=== PATIENT | male | born 1970 | race Caucasian/White ===

== ENCOUNTER 2016-08-24 06:29 | Day surgery (SDC) | payer OTHER ==
[2016-08-20 12:29] VITALS: BMI 28.7
[~2016-08-24 06:29] MED LIST: LACTATED RINGERS 1,000 ML IV SCH; LIDOCAINE 1% 20 ML VIAL (10MG/ML) FOR IV START INTRADERMA PRN
[2016-08-24 06:59] VITALS: RESP 16; TEMP 97.3
[2016-08-24] MEDS ORDERED: LACTATED RINGERS 1,000 ML IV ONE (07:41)
[2016-08-24] MEDS ORDERED: PROPOFOL 10 MG/ML 20 ML VIAL IV ONE (07:44)
[2016-08-24] MEDS ORDERED: LIDOCAINE 1% INJ 10MG/ML (20 ML MDV) ONE (07:44)
--- NOTE | 2016-08-24 08:09 | P.OP ---
Date of Procedure: 08/24/16 Preoperative Diagnosis: Abdominal pain, family history colon cancer Postoperative Diagnosis: Sigmoid diverticuli, internal hemorrhoids Procedure(s) Performed: Colonoscopy Anesthesia: ASHA Surgeon: Katya Gutiérrez Estimated Blood Loss (ml): 0 IV fluids (ml): 400 Pathology: none sent Condition: stable Disposition: PACU Indications for Procedure: Abdominal pain, family history colon cancer Operative Findings: Sigmoid diverticuli, internal hemorrhoids Description of Procedure: Patient was taken to the endoscopy suite and following sedation rectal exam was performed. Colonoscope was passed through the anus into the rectum. Was passed through the sigmoid colon up to splenic flexure. Was passed through the transverse colon hepatic flexure right colon down to the area of the cecum. Circumferential observation mucosa did not reveal any lesions of concern in the cecum or right colon. No lesions of concern were identified in the transverse colon. No lesions of concern were noted in the left colon scattered diverticuli were noted in the sigmoid colon. The scope was brought down into the rectum where it was retroflexed internal hemorrhoids identified. Proximally 6 minutes were taken to withdraw the scope from the cecum to the rectum. Impression/plan: 1. Sigmoid diverticuli 2. Internal hemorrhoids Plan: 1. Conservative management 2. Repeat scope 7-10 years
--- NOTE | 2016-08-24 08:10 | P.DS ---
Providers Attending physician: Katya Gutiérrez Primary care physician: Matthew Damon Plan - Discharge Summary Discharge Medication List No Known Home Medications [No Known Home Medications] 08/20/16 [History] Follow up Appointment(s)/Referral(s): Katya Gutiérrez MD [STAFF PHYSICIAN] - As Needed Activity/Diet/Wound Care/Special Instructions: Diverticular diet Discharge Disposition: HOME SELF-CARE
[2016-08-24 08:42] VITALS: BP 121/75; PULSE 68
== END 2016-08-24 09:06 | disposition home or self-care (01) ==
LOC: ORWHC2ENDO 06:29
PROVIDERS: ATTEND Surgery
DX: K57.90 Diverticulosis of intestine, part unspecified, without perforation or abscess without bleeding (principal); K64.8 Other hemorrhoids; Z80.0 Family history of malignant neoplasm of digestive organs; F17.200 Nicotine dependence, unspecified, uncomplicated; Z88.6 Allergy status to analgesic agent; Z88.8 Allergy status to other drugs, medicaments and biological substances
CPT/HCPCS: 45378; J2001; J2704; 99153

== ENCOUNTER 2016-11-24 10:20 | Emergency (ER) | payer OTHER ==
[2016-11-24 10:32] VITALS: BP 120/60; PULSE 82; RESP 18; TEMP 97.8
[2016-11-24] MEDS ORDERED: HYDROcodone/APAP 5-325MG 1 EACH TAB PO STA (10:59)
[2016-11-24] MEDS ORDERED: DIAZEPAM 5 MG TAB PO STA (10:59)
--- NOTE | 2016-11-24 11:03 | ED ---
General Adult HPI - General Chief complaint: Back Pain/Injury Stated complaint: BACK PAST WORK INJURY Time Seen by Provider: 11/24/16 10:45 Source: patient Mode of arrival: wheelchair Limitations: no limitations - History of Present Illness Initial comments: 46-year-old male presenting for back pain. Patient states history of chronic low back pain after work accident. States he is currently in the process of evaluation with spinal surgeon in [place]. His follow-up appointment is on the 29 of December. He states that his back pain seems to be worsening over the past few days. He denies any new trauma or injury. He states he is having numbness in his left leg as well the shooting pain down the back of his left leg. He states this is a chronic and recurrent issue. He is not currently taking any pain medications. He denies any bowel or bladder incontinence. - Related Data Previous Rx's Medication Instructions Recorded Diazepam [Valium] 5 mg PO BID PRN #14 tab 11/24/16 HYDROcodone/APAP 5-325MG [Boston 1 tab PO Q6HR PRN #28 tab 11/24/16 5-325] Ibuprofen [Motrin] 800 mg PO Q8HR PRN #21 tab 11/24/16 Allergies Allergy/AdvReac Type Severity Reaction Status Date / Time cyclobenzaprine Allergy Swelling Verified 11/24/16 10:48 [From Flexeril] tramadol Allergy Swelling Verified 11/24/16 10:48 Review of Systems ROS Statement: Those systems with pertinent positive or pertinent negative responses have been documented in the HPI. ROS Other: All systems not noted in ROS Statement are negative. Past Medical History Past Medical History: No Reported History Additional Past Medical History / Comment(s): family hx. colon cancer, intermittent constipation, back injury History of Any Multi-Drug Resistant Organisms: None Reported Past Surgical History: No Surgical Hx Reported Additional Past Surgical History / Comment(s): ORAL SURGERY-HAD TEETH REMOVED March 2016 Past Anesthesia/Blood Transfusion Reactions: No Reported Reaction Past Psychological History: No Psychological Hx Reported Smoking Status: Current every day smoker Past Alcohol Use History: None Reported Additional Past Alcohol Use History / Comment(s): <ppd since late Past Drug Use History: None Reported - Past Family History Father Family Medical History: Cancer Additional Family Medical History / Comment(s): colon General Exam - General Exam Comments Initial Comments: General: Awake and Alert. No acute distress. Does not appear acutely ill. Eyes: ANTHONY, EOM intact. No nystagmus. No scleral icterus. HENT: Atraumatic, normocephalic. Mucous membranes moist. Trachea midline. Neck: The neck is supple, there is no tenderness or JVD. Cardiovascular: Regular rate and rhythm. No murmur, rub, or gallop is appreciated. Distal pulses intact. Respiratory: Lungs are clear to auscultation bilaterally. No wheezes, rales, rhonchi. No respiratory distress. Gastrointestinal: Soft, Nontender. No rebound or guarding. Non-distended. No masses or organomegaly noted. No CVA tenderness. Musculoskeletal: Left lower back tenderness. Tenderness to left lateral thigh. Strength is grossly intact. Neurological: A&Ox3. Speech is normal. Patient states subjective decreased sensation over the entire left leg but he states he does have sensation in all areas of the leg. No saddle paresthesias. Skin: Skin is warm and dry and no rashes or lesions are noted. Psychiatric: Cooperative, appropriate mood & affect, normal judgment. Limitations: no limitations Course Vital Signs 11/24/16 10:30 Temperature 97.8 F Pulse Rate 82 Respiratory 18 Rate Blood Pressure 120/60 O2 Sat by Pulse 99 Oximetry Medical Decision Making - Medical Decision Making 46-year-old male presenting for low back pain. States this is a chronic problem for him. He not currently taking any pain medication. MAPS performed which shows no recent pain prescription. Patient states he recently switched PCPs was told he should follow-up with pain management. States he has followed up with pain management and the past but he was not accepted as a patient due to his coverage being under Workmen's Comp. Patient was given Boston and Valium for pain and spasm in the EC. He declined IM or IV medications. MRI results from 07/23 reviewed. Patient reevaluated and states he is feeling improved after medications. Long discussion about management of his back pain. Discussed his MRI results. Patient states he is hoping to pursue surgical options. Patient was offered observation versus outpatient management. Patient would prefer to go home. Leg numbness has been a recurrent issue for some time. He has follow-up appointment in December with spinal specialist. He also recently began seeing a new PCP. Discussed following up closely with his PCP discuss further pain management. Discussed that I will write him for a week's worth of pain medication and muscle relaxer. Also written prescription for a cane. Patient was able to ambulate. Discussed concerning signs symptoms for immediate return to the ED. Patient are agreeable to plan of discharge home. Disposition Clinical Impression: Lumbago with sciatica, left side, Degenerative disk disease Disposition: HOME SELF-CARE Condition: Stable Instructions: Chronic Back Pain (ED) Additional Instructions: Please discuss further pain management with your primary doctor. Keep your appointment with the spinal surgeon in [place]. Prescriptions: Diazepam [Valium] 5 mg PO BID PRN #14 tab PRN Reason: back spasm HYDROcodone/APAP 5-325MG [Boston 5-325] 1 tab PO Q6HR PRN #28 tab PRN Reason: Pain Ibuprofen [Motrin] 800 mg PO Q8HR PRN #21 tab PRN Reason: Pain Referrals: Gary Harris Jr, [Primary Care Provider] - 1-2 days Time of Disposition: 11:56
== END 2016-11-24 12:12 | disposition home or self-care (01) ==
LOC: EC 10:20
DX: M51.16 Intervertebral disc disorders with radiculopathy, lumbar region (principal); F17.200 Nicotine dependence, unspecified, uncomplicated; Z88.6 Allergy status to analgesic agent; Z88.8 Allergy status to other drugs, medicaments and biological substances
CPT/HCPCS: 99284

== ENCOUNTER 2017-01-18 11:58 | Emergency (ER) | payer OTHER ==
[2017-01-18] MEDS ORDERED: methylPREDNISolone SOD SUCCI 125 MG/2 ML VIAL IV STA (12:22)
[2017-01-18] MEDS ORDERED: HYDROmorphone 1 MG/ML 1 ML SYRINGE IVP STA (12:22)
[2017-01-18] MEDS ORDERED: ORPHENADRINE 30 MG/ML 2 ML VIAL IVP STA (12:22)
--- NOTE | 2017-01-18 12:58 | ED ---
Back Pain HPI - General Chief Complaint: Back Pain/Injury Stated Complaint: back pain Time Seen by Provider: 01/18/17 12:04 Source: patient, EMS, RN notes reviewed - History of Present Illness Initial Comments: 46-year-old male presents emergency Department chief for his chronic back pain. Patient states he has chronic back pain may not take pain medication for. Patient states today he woke up and it flared up in a shooting down his left leg. Patient states that this is exactly like his typical back pain is just worse than normal. Patient states to move it hurts so bad so he thought that he called 911 and hopefully we can admit him for pain control. Patient states that he hasn't had any fever chills this. Patient denies any changes in bowel or bladder habits any loss of bowel or bladder function. Patient denies any saddle anesthesia. Patient states just needs something to help him with his discomfort so he can move around.Patient denies any recent fever, chills, shortness of breath, chest pain, abdominal pain, nausea vomiting, numbness or tingling, dysuria or hematuria, constipation or diarrhea, headaches or visual changes, or any other current symptoms. - Related Data Home Medications Medication Instructions Recorded Confirmed Citalopram Hydrobromide [CeleXA] 40 mg PO DAILY 01/18/17 01/18/17 clonazePAM [KlonoPIN] 1 mg PO DAILY PRN 01/18/17 01/18/17 clonazePAM [KlonoPIN] 2 mg PO HS 01/18/17 01/18/17 Previous Rx's Medication Instructions Recorded Ibuprofen [Motrin] 800 mg PO Q8HR PRN #21 tab 11/24/16 Hydrocodone/Acetaminophen [Rush 1 each PO Q6HR PRN #20 tab 01/18/17 5-325] predniSONE 50 mg PO DAILY #5 tab 01/18/17 Allergies Allergy/AdvReac Type Severity Reaction Status Date / Time cyclobenzaprine Allergy Swelling Verified 01/18/17 12:34 [From Flexeril] tramadol Allergy Swelling Verified 01/18/17 12:34 Review of Systems ROS Statement: Those systems with pertinent positive or pertinent negative responses have been documented in the HPI. ROS Other: All systems not noted in ROS Statement are negative. Past Medical History Past Medical History: No Reported History Additional Past Medical History / Comment(s): family hx. colon cancer, intermittent constipation, back injury History of Any Multi-Drug Resistant Organisms: None Reported Past Surgical History: No Surgical Hx Reported Additional Past Surgical History / Comment(s): ORAL SURGERY-HAD TEETH REMOVED March 2016 Past Anesthesia/Blood Transfusion Reactions: No Reported Reaction Past Psychological History: No Psychological Hx Reported Smoking Status: Former smoker Past Alcohol Use History: None Reported Additional Past Alcohol Use History / Comment(s): <ppd since late ' Past Drug Use History: None Reported - Past Family History Father Family Medical History: Cancer Additional Family Medical History / Comment(s): colon General Exam - General Exam Comments Initial Comments: General: The patient is awake and alert, in no distress, and does not appear acutely ill. Eye: Pupils are equal, round and reactive to light, extra-ocular movements are intact; there is normal conjunctiva bilaterally. No signs of icterus. Ears, nose, mouth and throat: There are moist mucous membranes. Neck: The neck is supple, there is no tenderness. Cardiovascular: There is a regular rate and rhythm. No murmur, rub or gallop is appreciated. Respiratory: Lungs are clear to auscultation, respirations are non-labored, breath sounds are equal. No wheezes, stridor, rales, or rhonchi. Gastrointestinal: Soft, non-distended, non-tender abdomen without masses or organomegaly noted. There is no rebound or guarding present. No CVA tenderness. Bowel sounds are unremarkable. Back: There is no tenderness to palpation in the midline. There is no obvious deformity. No rashes noted. She has positive straight leg raise on the left Musculoskeletal: Normal ROM, no tenderness, There is no pedal edema. There is no calf tenderness or swelling. Sensation intact. Pulses equal bilaterally 2+. Neurological: CN II-XII intact, There are no obvious motor or sensory deficits. Coordination appears grossly intact. Speech is normal. Skin: Skin is warm and dry and no rashes or lesions are noted. Psychiatric: Cooperative, appropriate mood & affect, normal judgment. Course Vital Signs 01/18/17 12:03 Temperature 98 F Pulse Rate 70 Respiratory 18 Rate Blood Pressure 153/74 O2 Sat by Pulse 96 Oximetry - Reevaluation(s) Reevaluation #1: 01/18/17 13:03 Patient was reassessed and states that he is feeling better at this time. Medical Decision Making - Medical Decision Making 46 yo male presents for for his chronic back pain. He is having sciatica like symptoms. Some we will start him on steroids for home. We discussed close follow up with Dr. arias parameters questions. We did discuss HIS concerns patient stated that he understood and is in agreement with plan. He'll be discharged home. Disposition Clinical Impression: Chronic back pain Disposition: HOME SELF-CARE Condition: Stable Instructions: Chronic Back Pain (ED) Additional Instructions: Please use medication as discussed. Please follow up with family doctor if symptoms have not improved over the next two days. Please return to the emergency room if your symptoms increase or worsen or for any other concerns. Prescriptions: Hydrocodone/Acetaminophen [Rush 5-325] 1 each PO Q6HR PRN #20 tab PRN Reason: Pain predniSONE 50 mg PO DAILY #5 tab Referrals: Gary Harris Jr, DO [Primary Care Provider] - 1-2 days Time of Disposition: 13:03
[2017-01-18 13:44] VITALS: BP 128/68; PULSE 71; RESP 18; TEMP 98
== END 2017-01-18 13:40 | disposition home or self-care (01) ==
LOC: EC 11:58
DX: G89.29 Other chronic pain (principal); M54.9 Dorsalgia, unspecified; Z87.891 Personal history of nicotine dependence; Z79.899 Other long term (current) drug therapy; Z88.8 Allergy status to other drugs, medicaments and biological substances; Z88.5 Allergy status to narcotic agent
CPT/HCPCS: 99284 ×2; 96374 ×2; 96375 ×3; J2360; J2930; J1170

== ENCOUNTER → 2017-04-06 | Outpatient (CLI) | payer OTHER ==
--- NOTE | 2017-04-06 21:28 | MR ---
EXAMINATION TYPE: MR aleksandraine/lspine wo con DATE OF EXAM: 04/06/2017 COMPARISON: MRI lumbar spine July 08, 2016. Lumbar spine x-ray June 30, 2016. HISTORY: Upper and Lower back pain x2 years (M54.9 and G89.29 per order. Neck pain causing pain or we akness in left arm and fingers since work injury 2 years ago per patient. Left-sided back pain causin g pain into left leg since injury April 12, 2015 per patient. TECHNIQUE: Multiplanar, multisequence imaging of the cervical and lumbar spine are performed without IV contrast. FINDINGS: C-SPINE: FINDINGS: Sagittal images of the cervical spine show the craniocervical junction to appear within nor mal limits. The cervical and upper thoracic spinal cord is normal in course, caliber, and signal. V ertebral alignment is straightened. The vertebral body and intravertebral disk heights are normal. N o large posterior disc herniations are seen on sagittal images. The bone marrow signal intensity is w ithin normal limits. There is mild to moderate multilevel anterior spurring in the mid to lower cervi khanh spine at C5-C6 and C6-C7 levels. Axial images at the C2-C3 level shows left-sided uncovertebral facet degenerative changes causing asy mmetric mild to moderate left-sided neural foraminal narrowing near axial image 49. Right-sided neura l foramen is patent. Spinal canal is preserved. Axial images at C3-C4 level show small broad-based right paracentral disc protrusion effacing anterio r thecal sac nearly up to ventral surface of spinal cord with some uncovertebral facet arthropathy ca using mild to moderate bilateral neural foraminal narrowing. Some blooming artifact may be exaggerati ng both findings as findings are less prominent on sagittal images. Axial images at C4-C5 level show focal broad-based right paracentral disc protrusion effacing anterio r thecal sac on axial image 28 causing slight flattening of ventral surface of spinal cord. There is asymmetric mild to moderate left-sided neural foraminal narrowing due to marginal spurring. Right-si ded neural foramen is patent near axial image 30. Axial images at C5-C6 level show more prominent focal broad-based right paracentral disc protrusion e ffacing anterolateral thecal sac on axial image 21 causing indenting of ventral surface of spinal cor d. Bilateral neural foramina are mildly narrowed. Axial images at C6-C7 level show focal broad-based effacing anterolateral thecal sac, there is margin al spurring bilaterally causing mild to moderate left greater than right neural foraminal narrowing a t this level. Axial images at C7-T1 level are felt within normal limits. IMPRESSION: Straightening of cervical spine with multilevel degenerative changes identified as detail ed above. L-SPINE: Survey images shows asymmetric prominence or mild enlargement of spleen measuring 13.9 cm on long axi s on image 1. Consider further clinical workup. Is redemonstration bilateral pars defects at L4 level. There is stable grade 1 anterolisthesis of L4 on L5 measuring approximately 4 to 5 mm from posterior vertebral body margin. Vertebral body heights appear stable and satisfactory. There is persistent disc desiccation with mild to moderate disc space narrowing L4-L5 level. Posterior disc herniation at this level on sagittal images is redemonstrated. There is persistent heterogeneous increased T1 and T2 signal at the anterior L4-L5 endplate consiste nt with Modic type II degenerative change. Moderate spurring at this level is redemonstrated. The con us medullaris remains normal in position and signal ending at superior L1 level. Axial images show the T12-L1 and L1-L2 levels to remain within normal limits. Axial images at the L2-L3 level redemonstrate mild broad disc bulge but spinal canal is preserved. Th ere is mild to minimal bilateral anterior inferior neural foraminal narrowing at this level redemonst rated. Axial images at L3-L4 level redemonstrate mild broad disc bulge mild facet degenerative changes bilat erally but spinal canal is preserved. There is redemonstration of stable mild bilateral anterior infe rior neural foraminal narrowing at this level. Axial images at the L4-L5 level show spondylolisthesis and broad-based posterior disc protrusion. The re is some increased prominence of epidural fat at this level. There is persistent mild facet degener ative changes bilaterally. There is persistent moderate to severe bilateral neural foraminal narrowin g most prominent inferiorly with encroachment on both L4 nerves redemonstrated on the right on sagitt al image 12 and on the left on sagittal image 4. Axial images at the L5-S1 level shows redemonstrate mild facet degenerative changes bilaterally. Ther e is prominent epidural fat redemonstrated. There is mild right greater than left neural foraminal na rrowing due to some marginal spurring. Paraspinal muscle bulk is maintained. No suspicious retroperitoneal findings are seen. Incidental not e is made of retroaortic left renal vein which is normal variant. IMPRESSION: Multilevel degenerative changes in the mid to lower lumbar spine as detailed above, most prominent findings L4-L5 level with there are bilateral pars defects and spondylolisthesis causing mo derate to severe bilateral neural foraminal narrowing with encroachment on both L4 nerves felt presen t. Further details are noted as discussed above. No significant progression from prior MRI is seen.
== END | disposition home or self-care (01) ==
LOC: RADMRIMAIN 18:26
PROVIDERS: ATTEND Neurological Surgery
DX: M99.73 Connective tissue and disc stenosis of intervertebral foramina of lumbar region (principal); M43.16 Spondylolisthesis, lumbar region; M47.812 Spondylosis without myelopathy or radiculopathy, cervical region; M47.817 Spondylosis without myelopathy or radiculopathy, lumbosacral region
CPT/HCPCS: 72141; 72148

== ENCOUNTER 2017-05-11 12:43 | Emergency (ER) | payer OTHER ==
[2017-05-11 12:48] VITALS: RESP 18; TEMP 97
[2017-05-11] MEDS ORDERED: KETOROLAC 30 MG/ML 1 ML VIAL IVP STA (13:10)
[2017-05-11] MEDS ORDERED: HYDROmorphone 1 MG/ML 1 ML SYRINGE IVP STA ×2 (13:10→14:59)
[2017-05-11 13:38] LABS: Basophils # (A) 0.1 k/uL (0-0.2); Basophils % (A) 1 %; CH 31.1; CHCM 34.4; Eosinophils # (A) 0.4 k/uL (0-0.7); Eosinophils % (A) 4 %; HGB 14.7 gm/dL (13.0-17.5); Luc # (Auto) 0.16; Luc % (Auto) 2; Lymphocytes # (A) 2.4 k/uL (1.0-4.8); Lymphocytes % (A) 24 %; MCH 31.7 pg (25.0-35.0); MCHC 34.9 g/dL (31.0-37.0); MCV 90.7 fL (80.0-100.0); Mean Platelet Volume 7.2; Monocytes # (A) 0.5 k/uL (0-1.0); Monocytes % (A) 5 %; Neutrophils # (A) 6.5 k/uL (1.3-7.7); Neutrophils % (A) 65 %; RBC 4.63 m/uL (4.30-5.90); RDW 13.4 % (11.5-15.5); WBC (Perox) 9.79
--- NOTE | 2017-05-11 13:39 | ED ---
Back Pain HPI - General Chief Complaint: Back Pain/Injury Stated Complaint: BACK PAIN Time Seen by Provider: 05/11/17 12:52 Source: patient, EMS Limitations: no limitations - History of Present Illness Initial Comments: Patient is a 46-year-old male who presents with a chief complaint of back pain. Patient has a history of back pain stemming from a work-related injury. Patient states periodically he has exacerbations of his back pain however today he is unable to walk at all. Patient states that he urinated on himself today, and that he is having some numbness and tingling in his peroneal region. Patient denies any new injury, and is unable to identify an inciting incident. He states that moving or trying to walk or exacerbating factors. Alleviating factors are none. Timing is constant. On initial evaluation, patient is in no acute distress. - Related Data Home Medications Medication Instructions Recorded Confirmed Citalopram Hydrobromide [CeleXA] 40 mg PO DAILY 01/18/17 05/11/17 clonazePAM [KlonoPIN] 1 mg PO TID PRN 01/18/17 05/11/17 Hydrocodone/Acetaminophen [[place] 1 tab PO Q6HR PRN 05/11/17 05/11/17 5-325] Methocarbamol [Robaxin-750] 750 mg PO Q8H PRN 05/11/17 05/11/17 Allergies Allergy/AdvReac Type Severity Reaction Status Date / Time cyclobenzaprine Allergy Swelling Verified 05/11/17 13:15 [From Flexeril] tramadol Allergy Swelling Verified 05/11/17 13:15 Review of Systems ROS Statement: Those systems with pertinent positive or pertinent negative responses have been documented in the HPI. ROS Other: All systems not noted in ROS Statement are negative. Constitutional: Denies: fever Eyes: Denies: vision change ENT: Denies: throat pain Respiratory: Denies: dyspnea Cardiovascular: Denies: chest pain Endocrine: Denies: fatigue Gastrointestinal: Denies: abdominal pain, nausea, vomiting Genitourinary: Reports: as per HPI Musculoskeletal: Reports: back pain Skin: Denies: rash, lesions Neurological: Reports: numbness, paresthesias, abnormal gait Psychiatric: Reports: depression Past Medical History Past Medical History: No Reported History Additional Past Medical History / Comment(s): family hx. colon cancer, intermittent constipation, back injury, chronic lower back pain. History of Any Multi-Drug Resistant Organisms: None Reported Past Surgical History: No Surgical Hx Reported Additional Past Surgical History / Comment(s): ORAL SURGERY-HAD TEETH REMOVED March 2016 Past Anesthesia/Blood Transfusion Reactions: No Reported Reaction Past Psychological History: Anxiety, Bipolar, Depression Smoking Status: Former smoker Past Alcohol Use History: None Reported Past Drug Use History: None Reported - Past Family History Father Family Medical History: Cancer Additional Family Medical History / Comment(s): colon General Exam Limitations: no limitations General appearance: alert, in no apparent distress Head exam: Present: atraumatic, normocephalic Eye exam: Present: normal appearance ENT exam: Present: normal exam Neck exam: Present: normal inspection Respiratory exam: Present: normal lung sounds bilaterally Cardiovascular Exam: Present: regular rate, normal rhythm, normal heart sounds GI/Abdominal exam: Present: soft. Absent: distended, tenderness, guarding Rectal exam: Present: normal inspection, decreased rectal tone Extremities exam: Present: normal inspection Back exam: Present: paraspinal tenderness, vertebral tenderness, other ( Examination of the back is limited secondary to patient's immobility) Neurological exam: Present: alert, oriented X3, CN II-XII intact, abnormal gait , motor sensory deficit (Neurologic examination of this patient's lower extremities reveals that he is hyporeflexic with bilateral patellar reflexes. Dorsiflexion and plantar flexion of the bilateral feet are diminished however it is unclear if this is secondary to effort for actual deficit. Rectal exam reveals decreased rectal tone.). Absent: reflexes normal Psychiatric exam: Present: depressed Skin exam: Present: warm, dry, intact Course Vital Signs 05/11/17 05/11/17 05/11/17 12:44 13:39 14:29 Temperature 97.0 F L Pulse Rate 54 L 69 65 Respiratory 18 18 18 Rate Blood Pressure 157/83 143/94 135/79 O2 Sat by Pulse 96 97 97 Oximetry Medical Decision Making - Medical Decision Making Patient presents with chief complaint of back pain. This appears to be an acute exacerbation of a chronic issue. Patient sees Dr. Vega at the [facility] for his back issues. He states that he is supposed to have surgery in July. Patient presents today with acute symptoms including going on for 3 days but worse today. Patient reports that he is unable to walk at home. Patient reports losing control of his bladder. Examination is concerning for cauda equina syndrome as patient is having perianal anesthesia, decreased rectal tone, and motor and sensory deficits of the lower extremities. Basic lab work was sent, I will speak with the patient's neurosurgeon to discuss this case and likely transfer to [facility] for continuation of care. 2:22 PM I spoke with Dr. Jansen at [facility] was unwilling to accept transfer of this patient secondary to their facility being at capacity. The transfer team at [facility] was called, I spoke with Dr. Childs regarding this patient's case. She accepts transfer of this patient. I review the care plan with the patient, he is agreeable. EMTALA will be signed, patient is stable for transfer. - Lab Data Result diagrams: 05/11/17 13:25 05/11/17 13:25 Lab Results 05/11/17 05/11/17 05/11/17 Range/Units 13:25 13:25 13:52 WBC 10.0 (3.8-10.6) k/uL RBC 4.63 (4.30-5.90) m/uL Hgb 14.7 (13.0-17.5) gm/dL Hct 42.0 (39.0-53.0) % MCV 90.7 (80.0-100.0) fL MCH 31.7 (25.0-35.0) pg MCHC 34.9 (31.0-37.0) g/dL RDW 13.4 (11.5-15.5) % Plt Count 204 (150-450) k/uL Neutrophils % 65 % Lymphocytes % 24 % Monocytes % 5 % Eosinophils % 4 % Basophils % 1 % Neutrophils # 6.5 (1.3-7.7) k/uL Lymphocytes # 2.4 (1.0-4.8) k/uL Monocytes # 0.5 (0-1.0) k/uL Eosinophils # 0.4 (0-0.7) k/uL Basophils # 0.1 (0-0.2) k/uL Sodium 140 (137-145) mmol/L Potassium 3.9 (3.5-5.1) mmol/L Chloride 109 H (98-107) mmol/L Carbon Dioxide 22 (22-30) mmol/L Anion Gap 9 mmol/L BUN 13 (9-20) mg/dL Creatinine 0.84 (0.66-1.25) mg/dL Est GFR (MDRD) Af Amer >60 (>60 ml/min/1.73 sqM) Est GFR (MDRD) Non-Af >60 (>60 ml/min/1.73 sqM) Glucose 89 (74-99) mg/dL Calcium 9.3 (8.4-10.2) mg/dL Urine Color Yellow Urine Appearance Clear (Clear) Urine pH 6.5 (5.0-8.0) Ur Specific [place] 1.015 (1.001-1.035) Urine Protein Negative (Negative) Urine Glucose (UA) Negative (Negative) Urine Ketones Negative (Negative) Urine Blood Negative (Negative) Urine Nitrite Negative (Negative) Urine Bilirubin Negative (Negative) Urine Urobilinogen <2.0 (<2.0) mg/dL Ur Leukocyte Esterase Negative (Negative) Disposition Clinical Impression: Cauda equina syndrome, Back pain Disposition: OTHER INSTITUTION NOT DEFINED Condition: Fair Referrals: Gary Harris Jr, [Primary Care Provider] - 1-2 days - Out of Hospital Transfer - Req. Specs Out of Hospital Transfer - Requested Specifics: Other Emergency Center
[2017-05-11 13:58] LABS: Anion Gap 9 mmol/L; Blood Urea Nitrogen 13 mg/dL (9-20); Calcium 9.3 mg/dL (8.4-10.2); Carbon Dioxide 22 mmol/L (22-30); Chloride 109 mmol/L (98-107); Glucose 89 mg/dL (74-99); Non-African American GFR(MDRD) >60 (>60 ml/min/1.73 sqM); Potassium 3.9 mmol/L (3.5-5.1); Sodium 140 mmol/L (137-145)
[2017-05-11 14:11] LABS: Appearance,Urine Clear (Clear); Bilirubin,Urine Negative (Negative); Glucose,Urine (UA) Negative (Negative); Ketones,Urine Negative (Negative); Leukocyte Esterase,Urine Negative (Negative); Nitrite,Urine Negative (Negative); PH, Urine 6.5 (5.0-8.0); Protein,Urine Negative (Negative); Specific Gravity,Urine 1.015 (1.001-1.035); UA Billing (MACRO vs. MICRO) CHEM; Urobilinogen,Urine <2.0 mg/dL (<2.0)
[2017-05-11 14:31] VITALS: BP 135/79; PULSE 65
== END 2017-05-11 15:30 | disposition short-term general hospital (02) ==
LOC: EC 12:43
DX: G83.4 Cauda equina syndrome (principal); F32.9 Major depressive disorder, single episode, unspecified; Z87.891 Personal history of nicotine dependence; Z79.899 Other long term (current) drug therapy; Z88.5 Allergy status to narcotic agent; Z88.8 Allergy status to other drugs, medicaments and biological substances
CPT/HCPCS: 99283 ×2; 96374 ×2; 96375 ×2; 96376 ×2; 36415; 80048; 85025; 81003; J1885; J1170

== ENCOUNTER → 2017-05-20 | Outpatient (CLI) | payer OTHER ==
--- NOTE | 2017-05-20 23:18 | MR ---
EXAMINATION TYPE: MR thoracic spine wo con DATE OF EXAM: 05/20/2017 COMPARISON: NONE HISTORY: Spondylolistheis, Pars defect of lumbar Standard multiplanar, multisequence MRI departmental protocol Multiplanar, multisequence images of the thoracic spine were acquired. FINDINGS: The thoracic vertebra have normal alignment. Disc spaces are fairly normal. There is no com pression fracture. On the T1 images there are scattered high signal foci in the vertebral bodies cons istent with hemangiomata. Thoracic spinal cord has normal signal pattern. There is no edema. There is no evidence of thoracic there is a large hypertrophic spur on the facet joint at T10-11 on the left side with some lateral recess stenosis. There is no sign of thoracic paraspinal mass. There is minor spurring of the endplates. IMPRESSION: Mild spondylotic changes. Facet arthropathy and mild lateral recess stenosis at T10-11 on the left si de. No spinal stenosis. No fracture.
== END | disposition home or self-care (01) ==
LOC: RADMRIMAIN 18:31
PROVIDERS: ATTEND Neurological Surgery
DX: M47.814 Spondylosis without myelopathy or radiculopathy, thoracic region (principal); M46.94 Unspecified inflammatory spondylopathy, thoracic region
CPT/HCPCS: 72146

== ENCOUNTER → 2017-08-04 | Outpatient (CLI) | payer OTHER ==
--- NOTE | 2017-08-04 13:13 | MR ---
EXAMINATION TYPE: MR lumbar spine wo con DATE OF EXAM: 08/04/2017 COMPARISON: Prior MR lumbar spine 07/08/2016 HISTORY: Dorsalgia, unspecified, Chronic pain TECHNIQUE: Multiplanar, multisequence images of the lumbar spine were acquired. L1-L2: Normal disc appearance without desiccation. No herniation, protrusion or disc bulging. No ca nal stenosis is present. Foramina are patent bilaterally. L2-L3: Broad-based posterior disc bulge causes slight anterior mass effect on the thecal sac. No sign ificant foraminal encroachment or central stenosis. L3-L4: Broad-based posterior disc bulge causes minimal anterior mass effect on the thecal sac. There is facet arthropathy with hypertrophy ligamentum flavum. No significant central stenosis or foraminal encroachment. L4-L5: Similar findings are present. There is bilateral foraminal encroachment due to the anterolisth esis grade 1, there is bilateral spondylolysis at L4. Broad-based posterior disc bulge causes mild an terior mass effect on the thecal sac. There is facet arthropathy change present. Cystic focus extends from the medial aspect facet joint on the right causes some mass effect on the right lateral aspect of the thecal sac as on prior exam and measures approximately 6 to 7 mm in diameter. No significant s jo stenosis. There is associated loss of disc height and signal. Endplate discogenic marrow signal changes are present with associated spondylosis. L5-S1: Facet arthropathy is mild. Broad-based posterior disc bulge does not cause significant central canal stenosis. No significant foraminal encroachment. Lumbar segments are intact. No paraspinal masses are identified. Conus medullaris has a normal appe arance. Circumaortic renal vein collar is suspected on the left. IMPRESSION: Findings are similar to prior. 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 Fac et arthropathy with synovial cyst causing right lateral mass effect on the thecal sac.
== END | disposition home or self-care (01) ==
LOC: RADMRIMAIN 11:11
PROVIDERS: ATTEND Neurological Surgery
DX: M43.06 Spondylolysis, lumbar region (principal); M46.97 Unspecified inflammatory spondylopathy, lumbosacral region; M71.38 Other bursal cyst, other site
CPT/HCPCS: 72148

== ENCOUNTER 2017-09-16 23:16 | Emergency (ER) | payer OTHER ==
[2017-09-16 23:32] VITALS: RESP 18
[2017-09-16] MEDS ORDERED: HYDROmorphone 2 MG/ML 1 ML SYRINGE IVP STA (23:34)
[2017-09-16] MEDS ORDERED: SODIUM CHLORIDE 0.9% 1,000 ML IV ONE (23:34)
[2017-09-16] MEDS ORDERED: ONDANSETRON 4 MG/2 ML VIAL IVP STA (23:34)
[2017-09-16] MEDS ORDERED: SODIUM CHLORIDE 0.9% 500 ML IV ONE (23:34)
[2017-09-16 23:57] LABS: Basophils # (A) 0.1 k/uL (0-0.2); Basophils % (A) 1 %; Eosinophils # (A) 0.3 k/uL (0-0.7); Eosinophils % (A) 2 %; HGB 13.8 gm/dL (13.0-17.5); Lymphocytes # (A) 3.8 k/uL (1.0-4.8); Lymphocytes % (A) 26 %; MCHC 32.8 g/dL (31.0-37.0); MCV 91.4 fL (80.0-100.0); Mean Platelet Volume 7.1; Monocytes # (A) 0.8 k/uL (0-1.0); Monocytes % (A) 5 %; Neutrophils # (A) 9.8 k/uL (1.3-7.7); Neutrophils % (A) 66 %; Platelet Count 239 k/uL (150-450); RBC 4.59 m/uL (4.30-5.90); RDW 12.9 % (11.5-15.5)
[2017-09-17 00:09] LABS: ALT 44 U/L (21-72); AST 26 U/L (17-59); Albumin 4.1 g/dL (3.5-5.0); Alkaline Phosphatase 68 U/L (38-126); Anion Gap 12 mmol/L; Blood Urea Nitrogen 16 mg/dL (9-20); Calcium 9.3 mg/dL (8.4-10.2); Carbon Dioxide 20 mmol/L (22-30); Chloride 109 mmol/L (98-107); Glucose 84 mg/dL (74-99); Potassium 3.9 mmol/L (3.5-5.1); Sodium 141 mmol/L (137-145); Total Bilirubin 0.3 mg/dL (0.2-1.3); Total Protein 6.8 g/dL (6.3-8.2)
--- NOTE | 2017-09-17 00:11 | ED ---
Fall HPI - General Chief Complaint: Fall Stated Complaint: Fall Time Seen by Provider: 09/16/17 23:23 Source: EMS Mode of arrival: EMS - History of Present Illness Initial Comments: 47 years old gentleman with a previous history of injured his lower back, unfortunately fell today came down 7 steps no complaining about the left hip pain left femur pain and the lower back pain he denies medication had denies any loss of consciousness no chest pain no abdominal pain no frequency urgency dysuria denies any neck pain. No headaches no neck stiffness no neurological deficits in the upper or lower extremity no symptoms of TIA or CVA - Related Data Home Medications Medication Instructions Recorded Confirmed Citalopram Hydrobromide [CeleXA] 40 mg PO DAILY 01/18/17 06/11/17 clonazePAM [KlonoPIN] 1 mg PO TID PRN 01/18/17 06/11/17 Methocarbamol [Robaxin] 500 mg PO BID 06/11/17 06/11/17 oxyCODONE-APAP 10-325MG [Percocet 1 tab PO TID PRN 06/11/17 06/11/17 10-325 mg] Previous Rx's Medication Instructions Recorded Baclofen 10 mg PO TID #12 tab 06/11/17 Diclofenac Sodium [Voltaren] 50 mg PO BID #30 tablet. 09/17/17 HYDROmorphone [Dilaudid] 1 mg PO Q8H PRN #15 tab 09/17/17 Allergies Allergy/AdvReac Type Severity Reaction Status Date / Time cyclobenzaprine Allergy Swelling Verified 06/11/17 18:56 [From Flexeril] tramadol Allergy Swelling Verified 06/11/17 18:56 Review of Systems ROS Statement: Those systems with pertinent positive or pertinent negative responses have been documented in the HPI. ROS Other: All systems not noted in ROS Statement are negative. Past Medical History Past Medical History: No Reported History Additional Past Medical History / Comment(s): family hx. colon cancer, intermittent constipation, back injury, chronic lower back pain. History of Any Multi-Drug Resistant Organisms: None Reported Past Surgical History: No Surgical Hx Reported Additional Past Surgical History / Comment(s): ORAL SURGERY-HAD TEETH REMOVED March 2016 Past Anesthesia/Blood Transfusion Reactions: No Reported Reaction Past Psychological History: Anxiety, Bipolar, Depression Smoking Status: Former smoker Past Alcohol Use History: None Reported Past Drug Use History: Marijuana - Past Family History Father Family Medical History: Cancer Additional Family Medical History / Comment(s): colon General Exam - General Exam Comments Initial Comments: General: The patient is awake and alert, in moderate distress does pain Skin: Skin is warm and dry and no rashes or lesions are noted. Eye: Pupils are equal, round and reactive to light, extra-ocular movements are intact; there is normal conjunctiva bilaterally. Ears, nose, mouth and throat: There are moist mucous membranes and no oral lesions. Neck: The neck is tender at C5 and C6 Cardiovascular: There is a regular rate and rhythm. No murmur, rub or gallop is appreciated. Respiratory: To auscultation bilateral, no wheezing no rhonchi no distress respiratory navarro noticed Gastrointestinal: Soft, non-distended, non-tender abdomen without masses or organomegaly noted. There is no rebound or guarding present. Bowel sounds are unremarkable. Back: Tender at the L4-L5 and S1, is also tender over the left greater trochanter, there is no neurovascular compromise of the distal left lower extremity Musculoskeletal: Normal ROM, no tenderness, There is no pedal edema. There is no calf tenderness or swelling. No cords were appreciated. Neurological: CN II-XII intact, Cranial nerves III through XII are intact. There are no obvious motor or sensory deficits. Coordination appears grossly intact. Speech is normal. Psychiatric: Cooperative, appropriate mood & affect, normal judgment Limitations: no limitations, physical limitation Course Vital Signs 09/16/17 23:27 Temperature 97.3 F L Pulse Rate 94 Respiratory 18 Rate Blood Pressure 134/90 O2 Sat by Pulse 99 Oximetry EKG is normal sinus rhythm ventricular rate is 89 AK interval is 160 QRS duration is 106 QT/QTc is 340/413 and aVF this EKG does not reveal any ST elevation or ST depression Patient is reassessed at 12:50 AM, he still complaining about the pain at that point to we discussed the findings of his imaging studies is sinus x-rays unremarkable his hip x-ray is unremarkable CT of the lumbar spine ruled out any fracture there are some old arthritic changes. Mom he stated he said pain I offered him observation admission for pain management he preferred to go home. He will be prescribed Dilaudid 1 mg by mouth 3 times a day when necessary #15 and then he is advised to see Dr. Dr. Harris. Medical Decision Making - Lab Data Result diagrams: 09/16/17 23:21 09/16/17 23:21 Lab Results 09/16/17 09/16/17 Range/Units 23:21 23:21 WBC 15.0 H (3.8-10.6) k/uL RBC 4.59 (4.30-5.90) m/uL Hgb 13.8 (13.0-17.5) gm/dL Hct 42.0 (39.0-53.0) % MCV 91.4 (80.0-100.0) fL MCH 30.0 (25.0-35.0) pg MCHC 32.8 (31.0-37.0) g/dL RDW 12.9 (11.5-15.5) % Plt Count 239 (150-450) k/uL Neutrophils % 66 % Lymphocytes % 26 % Monocytes % 5 % Eosinophils % 2 % Basophils % 1 % Neutrophils # 9.8 H (1.3-7.7) k/uL Lymphocytes # 3.8 (1.0-4.8) k/uL Monocytes # 0.8 (0-1.0) k/uL Eosinophils # 0.3 (0-0.7) k/uL Basophils # 0.1 (0-0.2) k/uL Sodium 141 (137-145) mmol/L Potassium 3.9 (3.5-5.1) mmol/L Chloride 109 H (98-107) mmol/L Carbon Dioxide 20 L (22-30) mmol/L Anion Gap 12 mmol/L BUN 16 (9-20) mg/dL Creatinine 0.90 (0.66-1.25) mg/dL Est GFR (MDRD) Af Amer >60 (>60 ml/min/1.73 sqM) Est GFR (MDRD) Non-Af >60 (>60 ml/min/1.73 sqM) Glucose 84 (74-99) mg/dL Calcium 9.3 (8.4-10.2) mg/dL Total Bilirubin 0.3 (0.2-1.3) mg/dL AST 26 (17-59) U/L ALT 44 (21-72) U/L Alkaline Phosphatase 68 (38-126) U/L Total Protein 6.8 (6.3-8.2) g/dL Albumin 4.1 (3.5-5.0) g/dL Disposition Clinical Impression: Fall, Back pain, Left hip pain Disposition: HOME SELF-CARE Condition: Good Instructions: Fall Prevention for Older Adults (ED) Prescriptions: Diclofenac Sodium [Voltaren] 50 mg PO BID #30 tablet. HYDROmorphone [Dilaudid] 1 mg PO Q8H PRN #15 tab PRN Reason: Pain Referrals: Gary Harris Jr, [Primary Care Provider] - 1-2 days
--- NOTE | 2017-09-17 00:12 | CT ---
EXAMINATION TYPE: CT lumbar spine wo con DATE OF EXAM: 09/17/2017 12:02 AM COMPARISON: NONE HISTORY: Prior MR and XR on synapse, fall down 7 stairs history of chronic low back pain CT DLP: 1286.60 mGycm Automated exposure control for dose reduction was used. Lumbar vertebra have overall fairly normal alignment. There is spondylolysis of L4 with a minimal 4 m m L4-5 spondylolisthesis. I see no acute fracture. There is no compression fracture. There is spurrin g of the endplates anteriorly at L4-5. There is no significant disc space narrowing. There is no lumb ar paraspinal mass. There is a mild relative spinal stenosis at L4-5. IMPRESSION: No acute bony abnormality seen. Minimal L4-5 spondylolisthesis that is unchanged compared to MR scan of 08/04/2017. There is a mild relative spinal stenosis at L4-5.
--- NOTE | 2017-09-17 00:22 | XR ---
EXAMINATION TYPE: XR Hip Complete LT DATE OF EXAM: 09/17/2017 COMPARISON: NONE HISTORY: Fell down the stairs with hip pain TECHNIQUE: 2 views FINDINGS: I see no fracture nor dislocation. Hip joint space is fairly normal. Visualized sacroiliac joint appears normal. IMPRESSION: Negative left hip exam.
[2017-09-17] MEDS ORDERED: HYDROmorphone 2 MG/ML 1 ML SYRINGE IVP STA (00:37)
[2017-09-17] MEDS ORDERED: KETOROLAC 30 MG/ML 1 ML VIAL IVP STA (00:38)
--- NOTE | 2017-09-17 00:39 | XR ---
EXAMINATION TYPE: XR femur LT DATE OF EXAM: 09/17/2017 COMPARISON: NONE HISTORY: Fell down the stairs. Pain. TECHNIQUE: 4 views FINDINGS: I see no fracture nor dislocation. Knee joint and hip joint appear intact. IMPRESSION: Negative left femur exam.
--- NOTE | 2017-09-17 00:40 | XR ---
EXAMINATION TYPE: XR cervical spine comp DATE OF EXAM: 09/17/2017 COMPARISON: NONE HISTORY: Fell down the stairs. Neck pain. TECHNIQUE: 6 views FINDINGS: The cervical vertebra have normal alignment. Exam is limited by the shoulders. I see no sig nificant disc space narrowing. There is some anterior spurring at C4-5. There is anterior spurring at C5-6. There are no cervical ribs. Atlantoaxial facet joint is normal. IMPRESSION: Exam limited by the shoulders to some extent. No fracture seen. Spondylotic changes in th e lower cervical spine.
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
[2017-09-17] MEDS ORDERED: HYDROmorphone 2 MG/ML 1 ML SYRINGE IM STA (00:49)
[2017-09-17 02:15] VITALS: BP 137/93; PULSE 84; TEMP 98.7
== END 2017-09-17 01:22 | disposition home or self-care (01) ==
LOC: EC 23:16
DX: M54.5 Low back pain (principal); M25.552 Pain in left hip; F32.9 Major depressive disorder, single episode, unspecified; Z85.038 Personal history of other malignant neoplasm of large intestine; Z87.891 Personal history of nicotine dependence; Z79.899 Other long term (current) drug therapy; Z88.8 Allergy status to other drugs, medicaments and biological substances; Z88.6 Allergy status to analgesic agent; W10.9XXA Fall (on) (from) unspecified stairs and steps, initial encounter
CPT/HCPCS: 36415; 93005; 80053; 85025; 72050; 73502; 73552; 71046; 72131; 99285; 96374; 96375; 96361 ×2; 96372; J1170 ×2; J1885

== ENCOUNTER 2017-09-28 00:25 | Emergency (ER) | payer OTHER ==
[2017-09-28] MEDS ORDERED: MORPHINE SULFATE 4 MG/ML SYRINGE IVP STA (00:48)
--- NOTE | 2017-09-28 01:10 | ED ---
Fall HPI - General Chief Complaint: Fall Stated Complaint: Fall- L Hip Pain Time Seen by Provider: 09/28/17 00:26 Source: patient, EMS, RN notes reviewed Mode of arrival: EMS Limitations: no limitations - History of Present Illness Initial Comments: This a 47-year-old male presents emergency Department chief complaint fall. Patient states that his left leg sometimes gives out on him and states that he was going down the steps and states that it gave out causing him to fall down 7 steps. Patient states he believes he passed out for short period time. He believes this is when he ended up at the bottom of stairs. Patient states he hurts all over states his chronic back pain states that he is on Percocet currently. Patient does complain of some low back pain, pelvis pain, head and neck discomfort. States he did have some pain in his ribs but states that has resolved. Patient was not placed in a c-collar by EMS she was placed in c- collar emergency department. Patient denies any extremity injuries. Denies any loss of bowel patient denies any abdominal pain. - Related Data Home Medications Medication Instructions Recorded Confirmed Citalopram Hydrobromide [CeleXA] 40 mg PO DAILY 01/18/17 06/11/17 clonazePAM [KlonoPIN] 1 mg PO TID PRN 01/18/17 06/11/17 Methocarbamol [Robaxin] 500 mg PO BID 06/11/17 06/11/17 oxyCODONE-APAP 10-325MG [Percocet 1 tab PO TID PRN 06/11/17 06/11/17 10-325 mg] Previous Rx's Medication Instructions Recorded Baclofen 10 mg PO TID #12 tab 06/11/17 Diclofenac Sodium [Voltaren] 50 mg PO BID #30 tablet. 09/17/17 HYDROmorphone [Dilaudid] 1 mg PO Q8H PRN #15 tab 09/17/17 Allergies Allergy/AdvReac Type Severity Reaction Status Date / Time cyclobenzaprine Allergy Swelling Verified 09/28/17 00:34 [From Flexeril] tramadol Allergy Swelling Verified 09/28/17 00:34 Review of Systems ROS Statement: Those systems with pertinent positive or pertinent negative responses have been documented in the HPI. ROS Other: All systems not noted in ROS Statement are negative. Past Medical History Past Medical History: No Reported History Additional Past Medical History / Comment(s): family hx. colon cancer, intermittent constipation, back injury, chronic lower back pain. History of Any Multi-Drug Resistant Organisms: None Reported Past Surgical History: No Surgical Hx Reported Additional Past Surgical History / Comment(s): ORAL SURGERY-HAD TEETH REMOVED March 2016 Past Anesthesia/Blood Transfusion Reactions: No Reported Reaction Past Psychological History: Anxiety, Bipolar, Depression Smoking Status: Former smoker Past Alcohol Use History: None Reported Past Drug Use History: Marijuana - Past Family History Father Family Medical History: Cancer Additional Family Medical History / Comment(s): colon General Exam Limitations: physical limitation General appearance: alert, in no apparent distress Head exam: Present: atraumatic, normocephalic, normal inspection Eye exam: Present: normal appearance, PERRL, EOMI. Absent: scleral icterus, conjunctival injection, periorbital swelling ENT exam: Present: mucous membranes moist, TM's normal bilaterally, normal external ear exam. Absent: normal exam, normal oropharynx (poor dentition) Neck exam: Present: normal inspection. Absent: tenderness, meningismus, full ROM (Patient in c-collar placed by Kiel WEAVER and me), lymphadenopathy Respiratory exam: Present: normal lung sounds bilaterally. Absent: respiratory distress, wheezes, rales, rhonchi, stridor, chest wall tenderness Cardiovascular Exam: Present: regular rate, normal rhythm, normal heart sounds. Absent: systolic murmur, diastolic murmur, rubs, gallop, clicks GI/Abdominal exam: Present: soft, normal bowel sounds. Absent: distended, tenderness, guarding, rebound, rigid Extremities exam: Present: normal inspection, normal capillary refill. Absent: full ROM (Decreased range of motion left hip with moderate tenderness), tenderness, pedal edema, joint swelling, calf tenderness Back exam: Present: normal inspection, full ROM, tenderness, vertebral tenderness. Absent: paraspinal tenderness Neurological exam: Present: alert, oriented X3, CN II-XII intact, reflexes normal. Absent: motor sensory deficit Skin exam: Present: warm, dry, intact, normal color. Absent: rash Course Vital Signs 09/28/17 09/28/17 09/28/17 00:30 00:36 01:36 Temperature 98.0 F Pulse Rate 100 74 Respiratory 20 20 18 Rate Blood Pressure 123/91 123/68 O2 Sat by Pulse 94 L 100 Oximetry Medical Decision Making - Medical Decision Making 47-year-old male present with Department chief complaint fall, multiple complaints. Patient's x-rays reviewed, CAT scan reviewed there is no acute injuries is chronic changes noted. Patient was given morphine, Dilaudid emergency department. Patient we discharged advised follow-up with his primary care physician and orthopedic surgeon. Disposition Clinical Impression: Fall, Back pain, Left hip pain, Head injury Disposition: HOME SELF-CARE Condition: Stable Instructions: Head Injury (ED), Chronic Pain (ED) Additional Instructions: Please return to the Emergency Department if symptoms worsen or any other concerns. Referrals: Gary Harris Jr, DO [Primary Care Provider] - 1-2 days Time of Disposition: 01:56
--- NOTE | 2017-09-28 01:24 | CT ---
EXAMINATION TYPE: CT brain puma vaz con DATE OF EXAM: 09/28/2017 COMPARISON: 06/11/2017 HISTORY: Fall CT DLP: 1897.30 mGycm Automated exposure control for dose reduction was used. TECHNIQUE: CT scan of the head and cervical spine are performed without contrast. FINDINGS: There is a small mucous retention cyst in the right maxillary sinus. Ventricles of normal size. There is no mass effect nor midline shift. There is no sign of intracranial hemorrhage. The ca lvarium is intact. There is mild mucosal thickening in the ethmoid air cells. The cervical vertebra have normal alignment. There is hypertrophic anterior spurring from C4 to C7. P osterior elements are intact. Skull base is intact. There is no sign of a fracture. Facet joints are intact. There is left-sided C6-7 neural foraminal impingement due to uncovertebral spurring. IMPRESSION: No acute intracranial abnormality. No change. Mild spondylotic changes in the cervical spine. No change. No fracture.
--- NOTE | 2017-09-28 01:35 | XR ---
EXAMINATION TYPE: XR lumbar spine 2 or 3V DATE OF EXAM: 09/28/2017 COMPARISON: NONE HISTORY: Back pain. Fall. TECHNIQUE: 3 views FINDINGS: There is probably slight L4 spondylolysis. There is a first-degree L4-5 spondylolisthesis. I see no compression fracture. Sacroiliac joints appear normal. IMPRESSION: No acute bony abnormality. L4-5 first degree spondylolisthesis appears chronic.
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
--- NOTE | 2017-09-28 01:37 | XR ---
EXAMINATION TYPE: XR pelvis AP view DATE OF EXAM: 09/28/2017 COMPARISON: NONE HISTORY: Pain TECHNIQUE: Single view FINDINGS: Pelvic ring is intact. Proximal femurs and hip joints appear intact. Sacroiliac joints appe ar normal. IMPRESSION: Normal pelvis
[2017-09-28] MEDS ORDERED: HYDROmorphone 0.5 MG/0.5 ML SYRINGE IVP STA (01:54)
[2017-09-28 02:03] VITALS: BP 122/74; PULSE 87; RESP 20
[2017-09-28 02:35] VITALS: TEMP 98.3
== END 2017-09-28 02:35 | disposition home or self-care (01) ==
LOC: EC 00:25
DX: S09.90XA Unspecified injury of head, initial encounter (principal); M25.551 Pain in right hip; M54.5 Low back pain; R10.2 Pelvic and perineal pain; F31.9 Bipolar disorder, unspecified; F41.9 Anxiety disorder, unspecified; Z87.891 Personal history of nicotine dependence; Z88.6 Allergy status to analgesic agent; Z88.8 Allergy status to other drugs, medicaments and biological substances; Z79.899 Other long term (current) drug therapy; W10.9XXA Fall (on) (from) unspecified stairs and steps, initial encounter
CPT/HCPCS: 72100; 72170; 71045; 72125; 70450; 99284; 96374; 96375; J2270; J1170

== ENCOUNTER 2017-11-08 14:08 | Emergency (ER) | payer OTHER ==
[2017-11-08] MEDS ORDERED: KETOROLAC 30 MG/ML 1 ML VIAL IVP STA (14:34)
[2017-11-08] MEDS ORDERED: methylPREDNISolone SOD SUCCI 125 MG/2 ML VIAL IV STA (14:34)
[2017-11-08] MEDS ORDERED: ORPHENADRINE 30 MG/ML 2 ML VIAL IVP STA (14:34)
[2017-11-08] MEDS ORDERED: oxyCODONE-APAP 10-325MG 1 EACH TAB PO STA (14:35)
--- NOTE | 2017-11-08 14:38 | ED ---
General Adult HPI - General Chief complaint: Back Pain/Injury Stated complaint: Back Pain Time Seen by Provider: 11/08/17 14:26 Source: patient, RN notes reviewed Mode of arrival: EMS Limitations: no limitations - History of Present Illness Initial comments: 47 yo male presents to the emergency department with a chief complaint of back pain that extends into his left leg. Patient suffers from chronic back pain. Patient does see a doctor out of [place] and is scheduled to have surgery on the . He states he had a flareup of his back pain that radiates down his left lower leg today. He states there is no nausea vomiting. He states there is no injury to the back. He states that he was concerned due to the pain and the fact that his home Percocet was not helping so he thought that he should be seen. He denies a loss by bladder function with this. He denies any saddle anesthesia. He states he just needs something to help get his back pain under control.Patient denies any recent fever, chills, shortness of breath, chest pain , back pain, abdominal pain, nausea vomiting, numbness or tingling, dysuria or hematuria, constipation or diarrhea, headaches or visual changes, or any other current symptoms. - Related Data Home Medications Medication Instructions Recorded Confirmed Citalopram Hydrobromide [CeleXA] 40 mg PO DAILY 01/18/17 11/08/17 clonazePAM [KlonoPIN] 1 mg PO TID 01/18/17 11/08/17 Methocarbamol [Robaxin] 500 mg PO BID PRN 06/11/17 11/08/17 oxyCODONE-APAP 10-325MG [Percocet 1 tab PO Q8H PRN 06/11/17 11/08/17 10-325 mg] Gabapentin [Neurontin] 800 mg PO TID 11/08/17 11/08/17 Allergies Allergy/AdvReac Type Severity Reaction Status Date / Time cyclobenzaprine Allergy Swelling Verified 11/08/17 14:55 [From Flexeril] tramadol Allergy Swelling Verified 11/08/17 14:55 Review of Systems ROS Statement: Those systems with pertinent positive or pertinent negative responses have been documented in the HPI. ROS Other: All systems not noted in ROS Statement are negative. Past Medical History Past Medical History: No Reported History Additional Past Medical History / Comment(s): back injury, chronic lower back pain. History of Any Multi-Drug Resistant Organisms: None Reported Past Surgical History: No Surgical Hx Reported Additional Past Surgical History / Comment(s): ORAL SURGERY-HAD TEETH REMOVED March 2016 Past Anesthesia/Blood Transfusion Reactions: No Reported Reaction Past Psychological History: Anxiety, Bipolar, Depression Smoking Status: Former smoker Past Alcohol Use History: None Reported Past Drug Use History: Marijuana - Past Family History Father Family Medical History: Cancer Additional Family Medical History / Comment(s): colon General Exam Limitations: no limitations General appearance: alert, in no apparent distress ENT exam: Present: normal exam, mucous membranes moist Neck exam: Present: normal inspection. Absent: tenderness, meningismus, lymphadenopathy Respiratory exam: Present: normal lung sounds bilaterally. Absent: respiratory distress, wheezes, rales, rhonchi, stridor Cardiovascular Exam: Present: regular rate, normal rhythm, normal heart sounds. Absent: systolic murmur, diastolic murmur, rubs, gallop, clicks Back exam: Present: normal inspection, full ROM. Absent: tenderness, paraspinal tenderness, vertebral tenderness Neurological exam: Present: alert, oriented X3 Psychiatric exam: Present: normal affect, normal mood Skin exam: Present: warm, dry, intact, normal color. Absent: rash Course Vital Signs 11/08/17 14:14 Temperature 98.5 F Pulse Rate 78 Respiratory 18 Rate Blood Pressure 145/87 O2 Sat by Pulse 99 Oximetry Medical Decision Making - Medical Decision Making 47-year-old male presents for flareup of his chronic back pain. At this time patient's pain has improved. He is requesting Percocet refill but we cannot give this to him because his last Percocet does not for a another 7 days or so. At this time he will be discharged home. We discussed follow-up with his doctor we discussed return parameters all questions. Patient stated that he understood and he is agreement this plan. All questions have been answered. He will be discharged. Disposition Clinical Impression: Chronic back pain Disposition: HOME SELF-CARE Condition: Stable Instructions: Chronic Back Pain (ED) Additional Instructions: Please use medication as discussed. Please follow up with family doctor if symptoms have not improved over the next two days. Please return to the emergency room if your symptoms increase or worsen or for any other concerns. Referrals: Gary Harris Jr, [Primary Care Provider] - 1-2 days Time of Disposition: 16:08
[2017-11-08] MEDS ORDERED: MORPHINE SULFATE 4MG/4ML SYRG IVP STA (15:38)
[2017-11-08 16:17] VITALS: BP 166/106; PULSE 65; RESP 16; TEMP 96.7
== END 2017-11-08 16:25 | disposition home or self-care (01) ==
LOC: EC 14:08
DX: G89.29 Other chronic pain (principal); M54.9 Dorsalgia, unspecified; M79.662 Pain in left lower leg; F31.9 Bipolar disorder, unspecified; F41.9 Anxiety disorder, unspecified; Z87.891 Personal history of nicotine dependence; Z79.899 Other long term (current) drug therapy; Z88.5 Allergy status to narcotic agent; Z88.8 Allergy status to other drugs, medicaments and biological substances
CPT/HCPCS: 99284; 96374; 96375 ×3; J2360; J2930; J1885; J2270

== ENCOUNTER → 2017-11-10 | Outpatient (CLI) | payer OTHER ==
--- NOTE | 2017-11-10 09:02 | XR ---
EXAMINATION TYPE: XR chest 2V DATE OF EXAM: 11/10/2017 COMPARISON: 09/28/2017 TECHNIQUE: PA and lateral views submitted. HISTORY: Elevated white blood cell count FINDINGS: The lungs are clear and there is no pneumothorax, pleural effusion, or focal pneumonia. Metallic fo reign body overlying the right hemithorax. Hypertrophic and degenerative change spine. IMPRESSION: 1. No acute process.
== END | disposition home or self-care (01) ==
LOC: RADXRMAIN 06:38
PROVIDERS: ATTEND Nurse Practitioner Adult Health
DX: Z01.818 Encounter for other preprocedural examination (principal); D72.829 Elevated white blood cell count, unspecified
CPT/HCPCS: 71046

== ENCOUNTER 2017-11-22 12:04 | Emergency (ER) | payer OTHER ==
[2017-11-22] MEDS ORDERED: RX INFO: IV CONTRAST WAS GIVEN 1 EACH MISC MISCELLANE PRN (12:44)
[2017-11-22] MEDS ORDERED: SODIUM CHLORIDE 0.9% 1,000 ML IV ONE (12:44)
[2017-11-22] MEDS ORDERED: KETOROLAC 30 MG/ML 1 ML VIAL IVP STA (12:44)
[2017-11-22 12:55] LABS: Basophils % (A) 0 %; Eosinophils # (A) 0.4 k/uL (0-0.7); Eosinophils % (A) 4 %; HCT 32.6 % (39.0-53.0); Lymphocytes % (A) 22 %; MCH 29.8 pg (25.0-35.0); MCHC 33.8 g/dL (31.0-37.0); MCV 88.1 fL (80.0-100.0); Mean Platelet Volume 7.2; Monocytes # (A) 0.5 k/uL (0-1.0); Monocytes % (A) 5 %; Neutrophils % (A) 67 %; Platelet Count 289 k/uL (150-450); RDW 13.3 % (11.5-15.5)
[2017-11-22 13:02] LABS: INR 1.1 (<1.2); Prothrombin Time 10.4 sec (9.0-12.0)
[2017-11-22 13:04] LABS: Anion Gap 10 mmol/L; Blood Urea Nitrogen 14 mg/dL (9-20); Calcium 8.5 mg/dL (8.4-10.2); Carbon Dioxide 29 mmol/L (22-30); Chloride 103 mmol/L (98-107); Glucose 83 mg/dL (74-99); Potassium 3.8 mmol/L (3.5-5.1); Sodium 142 mmol/L (137-145)
--- NOTE | 2017-11-22 13:23 | ED ---
Fall HPI - General Chief Complaint: Fall Stated Complaint: Fall Time Seen by Provider: 11/22/17 12:14 Source: patient, EMS Mode of arrival: EMS - History of Present Illness Initial Comments: Patient is a 47-year-old male who presents with a chief complaint of back pain after a fall at home. The patient had a lumbar laminectomy performed 5 days ago at [facility]. The patient states that he had a mechanical fall, he fell down 2 steps and landed on the landing. The patient admits to hitting his head and losing consciousness. The patient states that he lost consciousness secondary to pain. He arrives via EMS on a backboard with C-spine precautions. Patient states his pain is 10 out of 10, he describes diffuse pain throughout his entire spine. The patient also complains of left leg paresthesias. - Related Data Home Medications Medication Instructions Recorded Confirmed Citalopram Hydrobromide [CeleXA] 40 mg PO DAILY 01/18/17 11/22/17 clonazePAM [KlonoPIN] 1 mg PO TID 01/18/17 11/22/17 oxyCODONE-APAP 10-325MG [Percocet 1 - 2 tab PO Q6H PRN 06/11/17 11/22/17 10-325 mg] Gabapentin [Neurontin] 800 mg PO TID 11/08/17 11/22/17 Cephalexin [Keflex] 500 mg PO Q8HR 11/22/17 11/22/17 HYDROmorphone [Dilaudid] 2 mg PO Q6H PRN 11/22/17 11/22/17 Methocarbamol [Robaxin-750] 750 mg PO Q6H PRN 11/22/17 11/22/17 Allergies Allergy/AdvReac Type Severity Reaction Status Date / Time cyclobenzaprine Allergy Swelling Verified 11/22/17 13:00 [From Flexeril] tramadol Allergy Swelling Verified 11/22/17 13:00 Review of Systems ROS Statement: Those systems with pertinent positive or pertinent negative responses have been documented in the HPI. ROS Other: All systems not noted in ROS Statement are negative. Musculoskeletal: Reports: back pain Neurological: Reports: paresthesias Past Medical History Past Medical History: No Reported History Additional Past Medical History / Comment(s): back injury, chronic lower back pain. History of Any Multi-Drug Resistant Organisms: None Reported Past Surgical History: No Surgical Hx Reported Additional Past Surgical History / Comment(s): ORAL SURGERY-HAD TEETH REMOVED March 2016, back surgery 5 days ago Past Anesthesia/Blood Transfusion Reactions: No Reported Reaction Past Psychological History: Anxiety, Bipolar, Depression Smoking Status: Former smoker Past Alcohol Use History: None Reported Past Drug Use History: None Reported - Past Family History Father Family Medical History: Cancer Additional Family Medical History / Comment(s): colon General Exam Limitations: physical limitation General appearance: alert, appears intoxicated Head exam: Present: atraumatic, normocephalic Eye exam: Present: normal appearance, PERRL, other (Patient's are somewhat pinpoint but reactive.) Pupils: Present: miosis ENT exam: Present: normal exam, mucous membranes moist Neck exam: Present: tenderness Respiratory exam: Present: normal lung sounds bilaterally Cardiovascular Exam: Present: regular rate, normal rhythm GI/Abdominal exam: Present: soft. Absent: distended, tenderness Rectal exam: Present: normal inspection, normal rectal tone, heme (-) stool exam: Present: normal inspection, circumcision Extremities exam: Present: normal inspection, other (Patient is a 2+ DP pulse on the right, no pulses palpated on the left however his extremity is warm, motor and sensation is intact. A Doppler pulse was obtained on the left side.) Back exam: Present: tenderness (Patient complains of tenderness throughout the entire spine. Examination of the patient's surgical scars show david in place , wound is clean and dry and well approximated.) Neurological exam: Present: alert, oriented X3 Psychiatric exam: Present: normal affect, normal mood Skin exam: Present: warm, dry, intact Course Vital Signs 11/22/17 11/22/17 11/22/17 12:06 12:31 15:13 Temperature 97.1 F L 98.0 F 98.3 F Pulse Rate 87 86 89 Respiratory 16 16 20 Rate Blood Pressure 134/84 133/69 133/77 O2 Sat by Pulse 97 97 98 Oximetry Medical Decision Making - Medical Decision Making Patient presents with a chief complaint of a fall, 5 days after back surgery. Patient denies blood thinners though he does admit to losing consciousness. On initial evaluation, vital signs are stable, patient is in no acute distress though he does appear intoxicated, likely secondary to narcotic pain medication. Patient will have basic blood work including coags. Computed tomography scan evaluation of his head, neck, spine, and pelvis. Patient given Toradol for pain initially as he appears sedated likely secondary to narcotic pain medications. 3:21 PM lab evaluation is unremarkable. CT scan shows post surgical changes however there are no new acute findings. I discussed this case with the patients neurosurgeon, Dr. Acuna, who states that if he does not have new motor deficit then he is comfortable with discharging the patient and following up. I spoke with Dr. Acuna's BULK CLERK who states she will contact the patient today to set up an outpatient appointment tomorrow. care plan reviewed with the patient, currently, he is much more awake and states he would like to be discharged home. patient able to ambulate with assistance. patient instructed to take his pain medications as prescribed at home, follow up with PCP and neurosurgery in 1 day, return to the ED if sx worsen or change. - Lab Data Result diagrams: 11/22/17 12:13 11/22/17 12:13 Lab Results 11/22/17 11/22/17 11/22/17 Range/Units 12:13 12:13 12:13 WBC 9.0 (3.8-10.6) k/uL RBC 3.70 L (4.30-5.90) m/uL Hgb 11.0 L (13.0-17.5) gm/dL Hct 32.6 L (39.0-53.0) % MCV 88.1 (80.0-100.0) fL MCH 29.8 (25.0-35.0) pg MCHC 33.8 (31.0-37.0) g/dL RDW 13.3 (11.5-15.5) % Plt Count 289 (150-450) k/uL Neutrophils % 67 % Lymphocytes % 22 % Monocytes % 5 % Eosinophils % 4 % Basophils % 0 % Neutrophils # 6.0 (1.3-7.7) k/uL Lymphocytes # 2.0 (1.0-4.8) k/uL Monocytes # 0.5 (0-1.0) k/uL Eosinophils # 0.4 (0-0.7) k/uL Basophils # 0.0 (0-0.2) k/uL PT 10.4 (9.0-12.0) sec INR 1.1 (<1.2) Sodium 142 (137-145) mmol/L Potassium 3.8 (3.5-5.1) mmol/L Chloride 103 (98-107) mmol/L Carbon Dioxide 29 (22-30) mmol/L Anion Gap 10 mmol/L BUN 14 (9-20) mg/dL Creatinine 0.84 (0.66-1.25) mg/dL Est GFR (CKD-EPI)AfAm >90 (>60 ml/min/1.73 sqM) Est GFR (CKD-EPI)NonAf >90 (>60 ml/min/1.73 sqM) Glucose 83 (74-99) mg/dL Calcium 8.5 (8.4-10.2) mg/dL Disposition Clinical Impression: Fall, Chronic back pain Disposition: HOME SELF-CARE Condition: Good Instructions: Fall Prevention for Older Adults (ED) Is patient prescribed a controlled substance at discharge?: No Referrals: Gary Harris Jr, DO [Primary Care Provider] - 1-2 days Chito Acuna MD [REFERRING] - 1-2 days
--- NOTE | 2017-11-22 14:05 | CT ---
EXAMINATION TYPE: CT brain cspine wo con DATE OF EXAM: 11/22/2017 COMPARISON: CT brain and cervical spine September 28, 2017 HISTORY: Headache, Neck and back pain CT DLP: 1679.6 mGycm. Automated Exposure Control for Dose Reduction was Utilized. TECHNIQUE: CT scan of the head and cervical spine are performed without contrast. FINDINGS: There is no acute intracranial hemorrhage, mass effect, or midline shift identified. The ventricles and sulci are within normal limits in size. Gill-white matter differentiation is maintai brea. The globes are intact and the visualized sinuses are clear. The calvarium is intact. Cervical spine is visualized in its entirety from C1 through upper thoracic levels and demonstrates s table and straightened alignment without evidence of acute fracture or within normal limits on the co joey images. Vertebral body heights are maintained. There is mild to moderate disc space narrowing and moderate an terior spurring C5-C6 and C6-C7 levels redemonstrated. Review of axial images shows some mild multile ashlee uncovertebral facet degenerative changes bilaterally. Thyroid gland is felt within normal limits. Lung apices are clear. IMPRESSION: 1. There is no acute fracture or dislocation evident in the cervical spine. 2. No acute intracranial hemorrhage, mass effect, or midline shift is seen.
--- NOTE | 2017-11-22 14:13 | CT ---
EXAMINATION TYPE: CT pelvis wo con DATE OF EXAM: 11/22/2017 COMPARISON: Correlation to pelvis 09/28/2017 HISTORY: Neck and back pain CT DLP: 632.90 mGycm Automated exposure control for dose reduction was used. Helical imaging through the pelvis. FINDINGS: There has been interval posterior fusion at L3-L5, intervertebral spacing blocks present. The disc sp aces L3-4, L4-5. Laminectomies have been performed on the right at L3 and L4. Anterolisthesis grade 1 L4-5. There is L4-5 spondylosis. No evident fracture or dislocation. Ossific density at the level of the acetabulum on the right is well-corticated and may represent unfused apophysis. Surgical david are noted posteriorly. There are bone fragments present in the paraspinal musculature on the left po stoperative. Artifact is noted due to patient's hardware. No evident spinal stenosis. Spondylolysis p resent at L4 on the left. Some ankylosis present at the sacroiliac joints inferior aspect. Small calcific density is present within the spinal canal on axial image 7 measuring 6 to 7 mm in siz e at the level of the superior endplate of L4, some lucency is also present in the canal at this leve l to the right midline which may be postoperative. Small bone fragments also present at the level of the lamina on the right at L4 likely due to partial previous resection. Prostate is mildly prominent, there is associated calcification. Urine distended bladder unremarkable as seen. Is a diverticulum associated with the sigmoid colon. No free fluid in the pelvis. No adenop athy. IMPRESSION: POSTOP FINDINGS ARE SUSPECTED, CORRELATE FOR SURGICAL HISTORY. Additional findings above. No acute fr acture or dislocation is evident.
--- NOTE | 2017-11-22 14:16 | CT ---
EXAMINATION TYPE: CT thor lumbar spine wo con DATE OF EXAM: 11/22/2017 COMPARISON: NONE HISTORY: Neck and back pain CT DLP: 1223.80 mGycm Automated exposure control for dose reduction was used. FINDINGS: There are postsurgical changes of intervertebral disc cages at L3-L4 and L4-L5 and pedicular screws a nd fixation rods traversing the L3-L5 vertebral levels. There is grade 1 anterolisthesis of L4 on L5 with surgical fixation. Some motion artifact is seen at the lower thoracic spine limiting evaluation, however there is no gross evidence of vertebral body height loss. Other than the previously mentione d grade 1 anterolisthesis of L4 on L5. Remainder the thoracolumbar spine maintains normal alignment. There is no evidence of acute fracture or dislocation. Mild multilevel degenerative changes are seen as small anterior osteophytes of the thoracic and lumbar spine. Evaluation of the spinal canal is eddy ited on CT, however there is no gross evidence of spinal canal stenosis. Degenerative changes of the sacroiliac joints are seen as anterior bridging osteophytes and sclerosis without sacroiliac joint space widening. Lower lumbar spine and right hemilaminectomy defects are se en. No evidence of acute fracture or dislocation. Visualized transverse processes and ribs are intact . Multifocal dependent groundglass opacities are favored to represent subsegmental atelectasis scattere d throughout the lungs with left lower lobe more focal consolidation also favored to represent atelec tasis given its regular.. The unenhanced mediastinum demonstrates no gross evidence of mediastinal ad enopathy in the heart size is upper limits of normal. Paraspinal musculature is symmetric with dystro phic calcifications of the left lower paraspinal musculature likely related to prior surgical interve ntion. No significant scoliosis is seen of the thoracolumbar spine. IMPRESSION: 1. POSTSURGICAL FIXATION OF A GRADE 1 ANTEROLISTHESIS OF L4 AND L5 WITH MULTILEVEL RIGHT HEMILAMINECT MARII DEFECTS OF THE LOWER LUMBAR SPINE. REMAINDER OF THE THORACOLUMBAR SPINE DEMONSTRATES NORMAL ALIGN MENT. 2. NO EVIDENCE OF VERTEBRAL BODY HEIGHT LOSS OF THE THORACIC OR LUMBAR SPINE. NO ACUTE FRACTURE. 3. EVALUATION OF THE SPINAL CANAL IS LIMITED, SIGNIFICANTLY WITHIN THE LOWER THORACIC SPINE DUE TO MO TION ARTIFACT, ALTHOUGH NO GROSS EVIDENCE OF SPINAL CANAL STENOSIS IS SEEN WITHIN THE REMAINDER. 4. MULTIFOCAL DEPENDENT GROUNDGLASS OPACITIES WITHIN THE LUNGS FAVORED TO REPRESENT MULTIFOCAL ATELEC TASIS. 5. DEGENERATIVE CHANGES OF THE SACROILIAC JOINTS, MILD IN DEGREE.
[2017-11-22] MEDS ORDERED: fentaNYL (PF) 50 MCG/ML 2 ML AMP IV ONE (14:39)
[2017-11-22 15:48] VITALS: BP 120/64; PULSE 72; RESP 16; TEMP 97.4
== END 2017-11-22 15:50 | disposition home or self-care (01) ==
LOC: EC 12:04
DX: M54.9 Dorsalgia, unspecified (principal); G89.29 Other chronic pain; F31.9 Bipolar disorder, unspecified; F41.9 Anxiety disorder, unspecified; Z87.891 Personal history of nicotine dependence; Z79.899 Other long term (current) drug therapy; Z88.6 Allergy status to analgesic agent; Z88.8 Allergy status to other drugs, medicaments and biological substances; Z98.890 Other specified postprocedural states; W10.9XXA Fall (on) (from) unspecified stairs and steps, initial encounter
CPT/HCPCS: 36415; 80048; 85025; 85610; 72192; 72128; 72125; 72131; 70450; 99284; 96374; 96375; 96361; J3010; J1885

== ENCOUNTER 2017-11-24 16:13 | Emergency (ER) | payer OTHER ==
[2017-11-24 16:21] VITALS: BP 129/78; PULSE 95; RESP 18; TEMP 97.8
[2017-11-24] MEDS ORDERED: HYDROcodone/APAP 10-325MG 1 EACH TAB PO ONE (17:18)
[2017-11-24] MEDS ORDERED: oxyCODONE-APAP 10-325MG 1 EACH TAB PO STA (17:23)
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
== END 2017-11-24 17:44 | disposition left against medical advice (07) ==
LOC: EC 16:13
DX: S30.0XXA Contusion of lower back and pelvis, initial encounter (principal); R20.0 Anesthesia of skin; F32.9 Major depressive disorder, single episode, unspecified; F41.9 Anxiety disorder, unspecified; Z87.891 Personal history of nicotine dependence; Z88.6 Allergy status to analgesic agent; Z88.8 Allergy status to other drugs, medicaments and biological substances; Z79.899 Other long term (current) drug therapy; Z98.890 Other specified postprocedural states; W50.1XXA Accidental kick by another person, initial encounter
CPT/HCPCS: 99284

== ENCOUNTER 2018-02-06 17:34 | Emergency (ER) | payer OTHER ==
[2018-02-06] MEDS ORDERED: MORPHINE SULFATE 2 MG/ML SYRINGE IVP STA (17:51)
--- NOTE | 2018-02-06 18:08 | ED ---
General Adult HPI - General Chief complaint: Back Pain/Injury Stated complaint: Back Pain Time Seen by Provider: 02/06/18 17:43 Source: patient, EMS, RN notes reviewed, old records reviewed Mode of arrival: EMS Limitations: no limitations - History of Present Illness Initial comments: Patient 47-year-old male presented to the emergency room today by EMS, with a chief complaint of back pain. He does admit to recent surgery back in November 2017. Patient does admit there is no injury or trauma. He is worried that there could be part of the hardware is loose as he feels increased pain on the left side radiating down the left leg. He states had similar symptoms prior to this surgery. He does admit that he is recently out of his Percocet. He states he ran out yesterday. Patient states that he has not had for pain today. Denies any bowel or bladder incontinence retention. Denies any saddle anesthesia. Denies any other complaints. Patient denies any recent fever, chills, shortness of breath, chest pain, abdominal pain, nausea or vomiting, dysuria or hematuria, constipation or diarrhea, headaches or visual changes, or any other complaints. - Related Data Home Medications Medication Instructions Recorded Confirmed Citalopram Hydrobromide [CeleXA] 40 mg PO DAILY 01/18/17 02/06/18 clonazePAM [KlonoPIN] 1 mg PO TID 01/18/17 02/06/18 oxyCODONE-APAP 10-325MG [Percocet 1 - 2 tab PO TID PRN 06/11/17 02/06/18 10-325 mg] Allergies Allergy/AdvReac Type Severity Reaction Status Date / Time cyclobenzaprine Allergy Swelling Verified 02/06/18 18:04 [From Flexeril] tramadol Allergy Swelling Verified 02/06/18 18:04 Review of Systems ROS Statement: Those systems with pertinent positive or pertinent negative responses have been documented in the HPI. ROS Other: All systems not noted in ROS Statement are negative. Past Medical History Past Medical History: No Reported History Additional Past Medical History / Comment(s): back injury, chronic lower back pain. History of Any Multi-Drug Resistant Organisms: None Reported Past Surgical History: Back Surgery Additional Past Surgical History / Comment(s): ORAL SURGERY-HAD TEETH REMOVED March 2016, back surgery 5 days ago Past Anesthesia/Blood Transfusion Reactions: No Reported Reaction Past Psychological History: Anxiety, Bipolar, Depression Smoking Status: Former smoker Past Alcohol Use History: None Reported Past Drug Use History: None Reported - Past Family History Father Family Medical History: Cancer Additional Family Medical History / Comment(s): colon General Exam - General Exam Comments Initial Comments: General: The patient is awake and alert, in no distress, and does not appear acutely ill. Eye: Pupils are equal, round and reactive to light, extra-ocular movements are intact. No nystagmus. There is normal conjunctiva bilaterally. No signs of icterus. Ears, nose, mouth and throat: There are moist mucous membranes and no oral lesions. Neck: The neck is supple, there is no tenderness or JVD. Cardiovascular: There is a regular rate and rhythm. No murmur, rub or gallop is appreciated. Respiratory: Lungs are clear to auscultation, respirations are non-labored, breath sounds are equal. No wheezes, stridor, rales, or rhonchi. Gastrointestinal: Soft, non-distended, non-tender abdomen without masses or organomegaly noted. There is no rebound or guarding present. No CVA tenderness. Musculoskeletal: Patient does have mild tenderness lower lumbar with increased paravertebral tenderness on the left side of the lumbar spine. Strength 5/5. Sensation intact. Pulses equal bilaterally 2+. Neurological: A&O x 3. CN II-XII intact, There are no obvious motor or sensory deficits. Coordination appears grossly intact. Speech is normal. Skin: Skin is warm and dry and no rashes or lesions are noted. Psychiatric: Cooperative, appropriate mood & affect, normal judgment. Limitations: no limitations Course Vital Signs 02/06/18 17:40 Temperature 97.8 F Pulse Rate 74 Respiratory 16 Rate Blood Pressure 131/85 O2 Sat by Pulse 98 Oximetry Medical Decision Making - Medical Decision Making Patient's x-ray reviewed is negative for any acute abnormality. Results were discussed with the patient. Patient denies any injury or trauma. Patient does admit to a pain going down left leg which has had before previous to his surgery. This time heart were stable. Patient has no bowel or bladder incontinence retention. No saddle anesthesia. Vitals are stable. Patient is advised follow-up the surgeon tomorrow. Will be given a short course of steroids. Patient's pain medication was supposed mailed out to him. Was given dose of Morphine and Percocet here in the ER and cannot give any other narcotics here. Advised return for concerns for any other concerns. Disposition Clinical Impression: Chronic back pain Disposition: HOME SELF-CARE Condition: Good Instructions: Chronic Back Pain (ED) Additional Instructions: Please follow-up with surgeon/family doctor in the next 1-2 days. Please return to emergency room if the symptoms increase or worsen or for any other concerns. Is patient prescribed a controlled substance at d/c from ED?: No Referrals: Gary Harris Jr, [Primary Care Provider] - 1-2 days Time of Disposition: 18:46
--- NOTE | 2018-02-06 18:28 | XR ---
EXAMINATION TYPE: XR lumbar spine 2 or 3V DATE OF EXAM: 02/06/2018 COMPARISON: 09/28/2017 HISTORY: Back pain TECHNIQUE: 3 views FINDINGS: There are rods and screws fusing posteriorly the lumbar spine from L3 to L5. There is mild anterior subluxation of L4 in relation L5 of 5 mm. There is disc prosthesis at L3-4 L4-5. Sacroiliac joints are intact. IMPRESSION: Posterior fusion surgery. No change in position of the vertebra compared to old exam.
[2018-02-06] MEDS ORDERED: oxyCODONE-APAP 10-325MG 1 EACH TAB PO STA (18:32)
[2018-02-06] MEDS ORDERED: DEXAMETHASONE SOD PHOSPHATE 10 MG/ML 1 ML VIAL IV STA (18:40)
[2018-02-06] MEDS ORDERED: ORPHENADRINE 30 MG/ML 2 ML VIAL IVP STA (18:46)
[2018-02-06 19:40] VITALS: BP 127/87; PULSE 56; RESP 17; TEMP 97.9
== END 2018-02-06 19:40 | disposition home or self-care (01) ==
LOC: EC 17:34
DX: M54.5 Low back pain (principal); G89.29 Other chronic pain; F31.9 Bipolar disorder, unspecified; F41.9 Anxiety disorder, unspecified; Z87.891 Personal history of nicotine dependence; Z79.899 Other long term (current) drug therapy; Z88.6 Allergy status to analgesic agent; Z88.8 Allergy status to other drugs, medicaments and biological substances
CPT/HCPCS: 72100; 99284; 96374; 96375 ×2; J1100; J2360; J2270